=== PATIENT | female | born 1930 | race Caucasian/White ===

== ENCOUNTER 2017-09-24 13:33 | Emergency (ER) | payer MEDICARE, OTHER ==
[~2017-09-24] VITALS: Ht 157.5 cm; Wt 67.6 kg
[2017-09-24] MEDS ORDERED: BRIMONIDINE TART5 ML OPTH (13:54)
[2017-09-24] MEDS ORDERED: HUMALOG100 UNITS/ IV (13:54)
[2017-09-24] MEDS ORDERED: TIMOLOL MALEATE5 M2 OP (13:54)
[2017-09-24] MEDS ORDERED: LANTUS100 UNITS/ SUB-Q (13:55)
== END 2017-09-24 16:08 | disposition home or self-care (01) ==
LOC: ED 13:33
PROC: 0HQ1XZZ Repair Face Skin, External Approach (ICD-10-PCS; principal; 2017-09-24)
DX: S01.81XA Laceration without foreign body of other part of head, initial encounter (principal); E11.9 Type 2 diabetes mellitus without complications; Z79.4 Long term (current) use of insulin; Z79.899 Other long term (current) drug therapy; W10.9XXA Fall (on) (from) unspecified stairs and steps, initial encounter
CPT/HCPCS: 12053; 70450; 72125; 99284